=== PATIENT | male | born 1960 | race Caucasian/White ===

== ENCOUNTER 2017-12-11 13:36 | Emergency (ER) | payer OTHER, SELFPAY ==
[2017-12-11 13:42] VITALS: BP 134/80; PULSE 71; RESP 20; TEMP 36.7; O2SAT 98; BMI 23.1
--- NOTE | 2017-12-11 13:46 | DI.RAD.S_ITS ---
PROCEDURE: [id number] W PEL IF PERFORMED INDICATIONS: injury pain TECHNIQUE: AP pelvis with lateral view(s) of the left hip(s). COMPARISON: None. FINDINGS: Bones: No fractures or dislocations. Pelvic ring appears intact. No suspicious bony lesions. Soft tissues: The visualized bowel gas pattern is normal. No suspicious soft tissue calcifications. IMPRESSION: No trauma found. Asymmetric hip joint osteoarthritis is present, moderate on the left and mild on the right. Dictated by: Deandre Hurtado M.D. on 12/11/2017 at 15:04 Approved by: Deandre Hurtado M.D. on 12/11/2017 at 15:04
--- NOTE | 2017-12-11 13:47 | DI.RAD.S_ITS ---
PROCEDURE: XR WRIST LT MIN 3V INDICATIONS: injury, pain TECHNIQUE: 4 views of the wrist were acquired. COMPARISON: None. FINDINGS: Bones: No fractures or dislocations. No suspicious bony lesions. Scaphoid view: No trauma the scaphoid is found but there is moderately severe degenerative osteoarthritic change at the articulation between the distal scaphoid and the base of the trapezium. Soft tissues: No suspicious soft tissue calcifications. IMPRESSION: No acute trauma found but moderately severe degenerative osteoarthritis is seen at the distal scaphoid articulating against the trapezium. Dictated by: Deandre Hurtado M.D. on 12/11/2017 at 15:04 Approved by: Deandre Hurtado M.D. on 12/11/2017 at 15:06
--- NOTE | 2017-12-11 15:01 | ED.LOWEXIN ---
HPI - Extremity Injury (Lower) <SEAN Barba - Last Filed: 12/11/17 21:44> General Chief Complaint: Extremity Injury, Lower Stated Complaint: left hip pain from an accident Time Seen by Provider: 12/11/17 14:36 Source: patient Mode of arrival: other Limitations: no limitations History of Present Illness HPI Narrative: 57-year-old healthy mal that is a nonsmoker here for complaint of pain into his left hip and to his left wrist and left hip after fall earlier today. He states that he was rock climbing and he was kneeling down help another person to climb Up when he states slipped and causing to roll over onto his left hip left wrist area. He reports pain with weight-bearing and movement to the left hip. He reports some slight swelling to the left hip area. He also reports having some slight pain to his left wrist. He denies any head injuries. No neck pain no other concerns or complaints Related Data Allergies Allergy/AdvReac Type Severity Reaction Status Date / Time No Known Drug Allergies Allergy Verified 12/11/17 13:46 Review of Systems <SEAN Barba - Last Filed: 12/11/17 21:44> Constitutional Denies chills, Denies fever(s), Denies lethargy and Denies weakness Eyes Denies change in vision, Denies eye discharge, Denies irritation and Denies loss of vision ENT Ears, Nose, Mouth, and Throat: Denies change in voice, Denies neck pain and Denies sore throat Cardiovascular Denies chest pain, Denies irregular heart rhythm, Denies lightheadedness, Denies palpitations, Denies dyspnea, Denies dyspnea on exertion and Denies orthopnea Respiratory Denies cough, Denies dyspnea, Denies dyspnea on exertion and Denies wheezing Gastrointestinal Gastrointestinal: Denies abdominal pain, Denies change in bowel habits, Denies diarrhea, Denies nausea and Denies vomiting Genitourinary Denies hematuria, Denies flank pain, Denies urinary incontinence and Denies urinary urgency Musculoskeletal Denies neck pain Comments: left hip pain left wrist pain Integumentary/Breasts Denies pruritus, Denies erythema, Denies rash and Denies wounds Neurologic Denies confusion, Denies loss of vision and Denies weakness Psychiatric Denies anxiety, Denies confusion, Denies depression, Denies homicidal ideation and Denies suicidal ideation Endocrine Denies palpitations Hematologic/Lymphatic Denies easy bruising Allergic/Immunologic Denies wheezing Exam <SEAN Barba - Last Filed: 12/11/17 21:44> Initial Vital Signs Initial Vital Signs: Vital Signs Temperature 98.1 F 12/11/17 13:42 Pulse Rate 71 12/11/17 13:42 Respiratory Rate 20 12/11/17 13:42 Blood Pressure 134/80 12/11/17 13:42 Pulse Oximetry 98 12/11/17 13:42 Const General: cooperative and well developed Nutritional Appearance: well nourished Orientation: alert, awake, oriented x3 and not confused HENMT Mouth: oral mucosae normal and moist mucous membranes Eyes Conjunctivae: conjunctivae normal Sclera: sclerae normal Pupils: PERRL EOM: EOM intact bilaterally Chest Chest: normal inspection of the chest Resp Effort & Inspection: normal respiratory effort, able to speak in complete sentences, no respiratory distress and no use of accessory muscles Auscultation: clear to auscultation bilaterally, no rales, no rhonchi and no wheezes Cardio Rate: regular rate Rhythm: regular rhythm Heart Sounds: no click, no gallops, no murmurs and no rubs Pulses: normal peripheral pulses Skin General: no rashes or lesions noted, No jaundice and No petechiae Neuro General: alert, oriented x3, gait normal and no focal motor deficits Speech: speech normal Extrem Other: slight swelling to the left lateral hip. Slight ecchymosis. No open lesions. No deformities. Distal sensation is intact. Distal pulses are intact. Distal range of motion is intact. Left wrist with no signs of trauma. No deformities. Distal sensation is intact. Distal range of motion is intact distal cap refill less than 2 sec. <Mara Rodriguez DO - Last Filed: 12/12/17 10:53> Initial Vital Signs Initial Vital Signs: Vital Signs Temperature 98.1 F 12/11/17 13:42 Pulse Rate 71 12/11/17 13:42 Respiratory Rate 20 12/11/17 13:42 Blood Pressure 134/80 12/11/17 13:42 Pulse Oximetry 98 12/11/17 13:42 Course <SEAN Barba - Last Filed: 12/11/17 21:44> Orders Ordered: ED Orders 12/11/17 13:46 XR hip w pel if done LT min 4V Stat 12/11/17 13:47 XR wrist LT min 3V Stat Vital Signs - 8 hr 12/11/17 15:30 12/11/17 16:13 Pulse Rate 64 80 Respiratory Rate 17 Blood Pressure 140/93 H Blood Pressure [Left Arm] 137/116 H Pulse Oximetry 100 99 <Mara Rodriguez DO - Last Filed: 12/12/17 10:53> Orders Ordered: ED Orders 12/11/17 13:46 XR hip w pel if done LT min 4V Stat 12/11/17 13:47 XR wrist LT min 3V Stat Vital Signs - 8 hr 12/11/17 15:30 12/11/17 16:13 Pulse Rate 64 80 Respiratory Rate 17 Blood Pressure 140/93 H Blood Pressure [Left Arm] 137/116 H Pulse Oximetry 100 99 MDM - Extremity Injury (Lower) <SEAN Barba - Last Filed: 12/11/17 21:44> Imaging Data Left hip : Radiologist's impression: [address] [address] XRay Report Signed Patient: Morris Rosas GMR#: [id number] : 1960Acct:[id number] Age/Sex: 57 / MDate of Service: 12/11/17 Loc: ED Accession Number: [id number] Procedure: XR hip w pel if done LT min 4V Ordering Provider: Mara Rodriguez D.O. PROCEDURE: [id number] W PEL IF PERFORMED INDICATIONS: injury pain TECHNIQUE: AP pelvis with lateral view(s) of the left hip(s). COMPARISON: None. FINDINGS: Bones: No fractures or dislocations. Pelvic ring appears intact. No suspicious bony lesions. Soft tissues: The visualized bowel gas pattern is normal. No suspicious soft tissue calcifications. IMPRESSION: No trauma found. Asymmetric hip joint osteoarthritis is present, moderate on the left and mild on the right. Dictated by: Deandre Hurtado M.D. on 12/11/2017 at 15:04 Approved by: Deandre Hurtado M.D. on 12/11/2017 at 15:04 left wrist : Radiologist's impression: [address] [address] XRay Report Signed Patient: Morris Rosas GMR#: [id number] : 1960Acct:[id number] Age/Sex: 57 / MDate of Service: 12/11/17 Loc: ED Accession Number: [id number] Procedure: XR wrist LT min 3V Ordering Provider: Mara Rodriguez D.O. PROCEDURE: XR WRIST LT MIN 3V INDICATIONS: injury, pain TECHNIQUE: 4 views of the wrist were acquired. COMPARISON: None. FINDINGS: Bones: No fractures or dislocations. No suspicious bony lesions. Scaphoid view: No trauma the scaphoid is found but there is moderately severe degenerative osteoarthritic change at the articulation between the distal scaphoid and the base of the trapezium. Soft tissues: No suspicious soft tissue calcifications. IMPRESSION: No acute trauma found but moderately severe degenerative osteoarthritis is seen at the distal scaphoid articulating against the trapezium. Dictated by: Deandre Hurtado M.D. on 12/11/2017 at 15:04 Approved by: Deandre Hurtado M.D. on 12/11/2017 at 15:06 [facility] Narrative Medical decision making narrative: x-ray the left hip was obtained was negative for any acute fractures. X-ray does show a moderate arthritis. Left wrist x-ray was obtained and was negative for any acute fractures. signs and symptoms presents as hip sprain and wrist sprain he is provided with crutches for nonweightbearing. Rest areas. use [id number] ibuprofen as needed for any discomfort. Follow up with primary care provider for any worsening symptoms return emergency room. Discharge Plan Departure Patient Disposition: Home Clinical Impression: Pain in left hip Discharge Date/Time: 12/11/17 16:12 Interventions: ED Discharge Assessment Last Done: 12/11/17 16:13 Instructions: DI for Hip Pain Activity Restrictions/Additional Instructions: x-rays of the left wrist and left hip were obtained were negative for any dislocations or fractures. Signs and symptoms presents as sprain/ strain to the area. Use [id number] ibuprofen as needed for any discomfort. Rest area. Gentle range of motion painful areas to help keep muscle fluids. Follow up with primary care provider. Return emergency room any worsening symptoms. Referrals: Jacob Cabrera MD [Physician] - <Mara Rodriguez DO - Last Filed: 12/12/17 10:53> Cosign ED Attending Cosignature Attestation: I was immediately available in the department for consultation. This documentation has been reviewed and I agree with assessment and plan. Supervised by Mara Rodriguez, DO
[2017-12-11 15:30] VITALS: BP 137/116; PULSE 64; O2SAT 100
[2017-12-11 16:13] VITALS: BP 140/93; PULSE 80; RESP 17; O2SAT 99
== END 2017-12-11 16:12 | disposition home or self-care (01) ==
PROVIDERS: Emergency Provider Nurse Practitioner Family
DX: M25.552 Pain in left hip (principal); W01.0XXA Fall on same level from slipping, tripping and stumbling without subsequent striking against object, initial encounter; Y93.31 Activity, mountain climbing, rock climbing and wall climbing
CPT/HCPCS: 73110; 73503; 99282; 99283